=== PATIENT | male | born 1950 | race Caucasian/White ===

== ENCOUNTER 2016-09-20 00:30 | Day surgery (SDC) | payer OTHER ==
[~2016-09-20] VITALS: Ht 190.5 cm; Wt 128.0 kg
[2016-09-20] VITALS (13 sets, daily range): BP systolic 103–125; BP diastolic 67–86; PULSE 62–76; RESP 12–20; O2SAT 92–96
[~2016-09-20 00:30] MED LIST: ALBU8.5H2 INHALATION; ALLO300T2 PO; ASPI-973 PO; ATOR80TA77 PO; BUPR150T12 PO; CALC-235 PO; CALC-952 PO; CAPS42.58 TP; CITA40TA13 PO; DOCU250C2 PO; DXPN25C PO; FINA5TAB9 PO; GABA-502 PO; HYDR25CA PO; ISOS30TA4 PO; KEN25CR EXT; LEVO125T2 PO; LEVO75CA2 PO; MENT56.7 TP; METH750T3 PO; METO25TA99 PO; MORP-32 PO; MULT1CAP33 PO; MUPI22OI2 TOP; OMEP20TA86 PO; OXYC1TAB24 PO; SERT25TA6 PO; TAMS0.4C29 PO
[2016-09-20] MEDS ORDERED: Vancomycin Inj 1,000 MG in IV Premix 1 EACH IV ONE (06:00)
--- NOTE | 2016-09-20 11:00 | NUR ---
ADMISSION NOTE MALE PT ADMITTED FOR ICD PLACEMENT. DISCUSSED PLAN OF CARE WITH PT. SEE ADMIT AND FLOW SHEET
[2016-09-20 11:55] LABS: BASOPHILS % (AUTO) 0.6 % (0-3); EOSINOPHILS % (AUTO) 4.1 % (0-5); MONOCYTES % (AUTO) 10.8 % (4-12); Mean Corpuscular Hemoglobin 32.3 pg (27.0-35.0); NEUTROPHILS % (AUTO) 44.7 % (40-74); Platelet Count 157 bil/L (150-400)
[2016-09-20] MEDS ORDERED: Vancomycin 1,000mg/200 mL NS IV ONE (12:26)
[2016-09-20] MEDS ORDERED: Bupivacaine-MPF 0.5% 30 mL Inj ONE (12:38)
[2016-09-20] MEDS ORDERED: 0.9% Sodium Chloride 250 ML ONE (12:38)
[2016-09-20] MEDS ORDERED: Vancomycin 1,000 mg Inj ONE (12:38)
[2016-09-20] MEDS ORDERED: Heparin 5,000 Units/500 mL NS Premix IV ONE (12:55)
[2016-09-20] MEDS ORDERED: fentaNYL-PF 50 mCg/mL 2 mL Inj ONE (13:40)
[2016-09-20] MEDS ORDERED: Ondansetron 2 mg/mL 2 mL Inj IVPUSH PRN (15:20)
--- NOTE | 2016-09-20 16:39 | DRSVH ---
PROCEDURE: X-RAY CHEST ONE VIEW, PORTABLE ([id number]) INDICATIONS: For new leads placed TECHNIQUE: One view of the chest was acquired. COMPARISON: [facility], CR, XR CHEST 1VW (PORTABLE), 09/05/2015, 14:41. FINDINGS: Surgical changes and devices: There is a left chest wall AICD with leads projecting over the right at rium right ventricle. Postsurgical changes are redemonstrated in the mediastinum. Lungs and pleura: No pleural effusions or pneumothorax. Lungs are clear. Mediastinum: Mediastinal contours appear unchanged. Heart size is normal. Bones and chest wall: No suspicious bony lesions. Overlying soft tissues appear unremarkable. IMPRESSION: 1. Status post AICD placement with no evidence of pneumothorax. Dictated by: Gaurav Sarkar M.D. on 09/20/2016 at 16:37 Approved by: Gaurav Sarkar M.D. on 09/20/2016 at 16:38
--- NOTE | 2016-09-20 17:30 | NUR ---
Care assumed/Transfer Care assumed at 1630. Site clear. Ice pack on. VSS. States tolerable soreness at site. Taking po and voiding. Report called by Radha Erickson RN to Ambrosio Perez RN. Transported to 3028 via bed with all belongings in no distress at 1725.
--- NOTE | 2016-09-20 17:45 | NUR ---
ADMIT/Transfer from [facility] Report received from RAD Garcia in [facility]. Pt brought onto floor around 1745 via bed. Admission interventions completed. Incision site is CDI. Pt declines to wearing arm sling, but keeps arm movement restricted. Pt reports 5/10 pain in L hip and back from previous injury, and incision site pain at 3/10. Denies CP and SOB. Tele placed, belongings recorded, waiver signed and kept at bedside in duffel bag. Pt reports he was instructed to bring his medications for his stay. Pt instructed to not use home meds and to have them sent home. Plan on board and continuing with care.
[2016-09-20] MEDS: HYDROcodone-APAP 5-325 mg Tablet PO PRN ×2 (18:06→22:14)
[2016-09-20] MEDS: 0.9% Sodium Chloride 1,000 ML IV SCH (18:09)
[2016-09-20] MEDS ORDERED: Albuterol 2.5 mg/3 mL Inhalation Solution NEB PRN (20:25)
[2016-09-20] MEDS ORDERED: Mupirocin 2% 22 Gm Ointment TOPICAL PRN (20:35)
[2016-09-20] MEDS ORDERED: Menthol Gel 57 Gm Tube TOPICAL PRN (20:35)
[2016-09-20] MEDS: MeTOProlol XL 25 mg ER24 Tablet PO SCH (22:02)
[2016-09-21 01:11] VITALS: BP 115/76; PULSE 65; RESP 18; O2SAT 93
--- NOTE | 2016-09-21 02:06 | OP ---
[address] [address] OPERATIVE REPORT PATIENT: SIMRAN GLYNN : 1950 MR#: [id number] ADMIT: 09/20/2016 JOB ID: [id number] DATE OF SURGERY: 09/20/2016 PREOPERATIVE DIAGNOSIS(ES): 1. Severe ischemic cardiomyopathy with ejection fraction 30%. 2. [place] [employer] class III heart failure symptoms. 3. Sick sinus syndrome. 4. Coronary artery disease, status post bypass grafting. POSTOPERATIVE DIAGNOSIS(ES): 1. Severe ischemic cardiomyopathy with ejection fraction 30%. 2. [place] [employer] class III heart failure symptoms. 3. Sick sinus syndrome. 4. Coronary artery disease, status post bypass grafting. PROCEDURES PERFORMED: 1. Dual-chamber internal cardioverter-defibrillator implantation. 2. Left upper extremity venogram. 3. Fluoroscopy. SURGEON: Jose Martin Leiva MD, moss gatherer. VOICE NETWORK ADMINISTRATOR: Dayami Mckenzie IMPLANTED DEVICES: 1. [employer] pulse generator, model SF1486, 36, serial #[id number]. 2. RA lead [employer] 2088TC, 52 cm, serial #[id number]. 3. RV lead [employer], single coil DF4, 7122Q8, 65 cm, serial #[id number]. ANESTHESIA: Bolus dosing of Versed and fentanyl were utilized for appropriate level of sedation. INDICATION: The patient is a pleasant 66-year-old man with coronary artery disease with bypass grafting, ischemic cardiomyopathy, advanced heart failure symptomology and symptomatic sinus bradycardia. After discussion of risks and benefits of dual-chamber ICD implantation for primary prevention of sudden cardiac arrest and treatment of sick sinus syndrome, he opted to proceed PROCEDURAL DESCRIPTION: Following informed consent, the patient was taken to the EP laboratory in a fasting, nonsedated state, where he was prepped and draped in usual sterile fashion. The left infraclavicular region was infiltrated with 40 cc of a 50/50 mixture of bupivacaine and lidocaine. Once adequate anesthesia had been achieved, a 3 cm transverse incision was performed 2 cm below the left clavicle. Dissection was carried down to the pectoralis fascia. A pocket was then fashioned using combination of electrocautery and blunt dissection. Once adequate hemostasis had been achieved, attempts to access the left axillary vein with a micropuncture needle were unsuccessful. A left upper extremity venogram was performed. Under venographic guidance, the vessel was cannulated twice with a micropuncture needle to deploy two 0.035, 3 mm J guidewires. Over the first of these, a 7-English tear-away sheath was advanced. Once the guidewire was removed, an active fixation lead was advanced to the RV outflow tract and ultimately the RV apex. The lead was affixed in position using its associated fixation screw. It was connected to the external analyzer and demonstrated appropriately sensed R waves, impedance, capture threshold. Lead was checked to 10 V and there was no evidence of diaphragmatic stimulation. Of note, the patient's heart is quite rightward rotated. Attention was now paid to placement of the right atrial lead. Over the previously deployed J guidewire another 6-English tear-away sheath was advanced. Once the guidewire was removed, an active fixation lead was advanced to the right atrial appendage. It was affixed in position using its associated active fixation screw. The lead was connected to the external analyzer and demonstrated appropriately sensed P waves, impedance, capture threshold. Lead was checked to 10 V. There was no evidence of diaphragmatic stimulation. Once the position and redundancy of both leads was confirmed with multiple fluoroscopic views, the leads were anchored to the prepectoralis fascia using their associated anchoring sleeves and two Ethibond sutures. The pocket was then copiously irrigated with antibiotic solution. The leads were connected to a generator, and then the pocket was affixed to the floor of the pocket using 1-0 Ti-Cron suture. The incision was then closed with running layers of absorbable suture. The wound was dressed with skin adhesive and a small dressing. At the end of procedure, the needle, sponge and instrument counts were all correct. COMPLICATIONS: None. ESTIMATED BLOOD LOSS: Negligible. DEVICE MEASURED DATA: 1. Right atrial lead 3.5 mV, 540 ohms, 0.75 V at 0.5 msec. 2. RV lead greater than 12 mV, 580 ohms, 0.5 V at 0.5 msec. FINAL PROGRAM PARAMETERS: 1. DDD 60-130 beats per minute. 2. VT monitor zone 150 beats per minute. 3. VT zone at 171 beats per minute with ATP followed by maximum output shocks. 4. VF zone at 187 beats per minute with ATP during charge with maximum output shocks thereafter. IMPRESSION: Successful dual-chamber internal cardioverter-defibrillator implantation. PLAN: 1. Stat portable chest x-ray. 2. PA and lateral chest x-ray in the morning. 3. 4. IV vancomycin through tomorrow. 5. Doxycycline x7 days. 6. Wound check in one week. ATTENDING STATEMENT: Jose Martin Leiva MD, electrophysiology attending, was present for and supervised/performed all aspects of this procedure.
[2016-09-21] MEDS ORDERED: Vancomycin Inj 1,000 MG in IV Premix 1 EACH IV ONE (03:20)
[2016-09-21] MEDS: 0.9% Sodium Chloride 1,000 ML IV SCH ×2 (03:30→11:16)
[2016-09-21 03:44] VITALS: PULSE 65
[2016-09-21 05:38] VITALS: BP 115/75; PULSE 65; RESP 18; O2SAT 93
[2016-09-21] MEDS ORDERED: Pantoprazole 20 mg ER24 Tablet PO SCH (06:30)
[2016-09-21] MEDS ORDERED: Isosorbide Mononitrate 30 mg ER24 Tablet PO SCH (07:30)
[2016-09-21] MEDS: MeTOProlol XL 25 mg ER24 Tablet PO SCH (07:45)
[2016-09-21] MEDS: HYDROcodone-APAP 5-325 mg Tablet PO PRN (07:49)
[2016-09-21 08:00] VITALS: PULSE 66
[2016-09-21] MEDS ORDERED: buPROPion SR 150 mg ER12 Tablet PO SCH (08:00)
[2016-09-21] MEDS ORDERED: Calcium Carbonate (Oyster Shell) 500 mg Tablet PO SCH (08:00)
--- NOTE | 2016-09-21 08:15 | NUR ---
Respiratory Pt assessed found sitting up in bed breathing RA. Sat 94% HR 64, RR 16. Pt states no SOB, cough or sputum, no need for Tx at this time, aware Tx is available.
--- NOTE | 2016-09-21 09:23 | DRSVH ---
PROCEDURE: X-RAY CHEST, TWO VIEWS ([id number]) INDICATIONS: For new lead placement TECHNIQUE: 2 views of the chest were acquired. COMPARISON: [facility], CR, XR CHEST 1VW (PORTABLE), 09/20/2016, 15:45. FINDINGS: Surgical changes and devices: Stable position left chest AICD. Median sternotomy wires. Lungs and pleura: No pleural effusions or pneumothorax. Lungs are clear. Mediastinum: Mediastinal contours are normal. Heart size is normal. Bones and chest wall: No suspicious bony abnormalities. Soft tissues appear unremarkable. IMPRESSION: Stable exam post pacer placement. Dictated by: Mario OROZCO Interpreted: Eleanor Brewster MD on 09/21/2016 at 9:21 Transcribed by: STACY on 09/21/2016 at 9:22 Approved by: Eleanor Brewster M.D. on 09/21/2016 at 15:48
--- NOTE | 2016-09-21 10:09 | PCM.DIMED ---
Discharge Instructions Date of Service Sep 21, 2016 Dates of Hospitalization Discharge Diagnosis Discharge Diagnosis Ischemic Cardiomyopathy Sick Sinus Syndrome with symptomatic bradycardia Obstructive Sleep Apnea Hypertension Diet Heart Healthy Activity Other (Keep incision dry one day. Do not extend left elbow high above left shoulder for one month. Do not lift, push or pull more than 10 lbs with the left arm for one month.) Call your provider Fever or Chills, Bleeding, Excessive diarrhea Patient Instructions Follow-up in: 1 week Mid-level Provider (F9): Jian Cohn PA-C Follow-up with Mid-level in: 6 weeks Jian Cohn PA-C Sep 21, 2016 10:09
[2016-09-21] MEDS ORDERED: CEPH500C PO (10:26)
[2016-09-21] MEDS ORDERED: OXYC-407 PO (10:35)
[2016-09-21 11:53] VITALS: BP 96/50; PULSE 65; RESP 22; O2SAT 92
[2016-09-21 12:05] VITALS: BP 98/64
--- NOTE | 2016-09-21 13:15 | NUR ---
Discharge Reviewed discharge paperwork, care notes, and prescriptions with pt - disclaimer signed. IV's DCd intact, Tele removed, all belongings with pt. Pt denies pain, SOB with no observable symptoms. Pt taken curbside in WC, friend driving pt home in truck.
--- NOTE | 2016-09-21 20:09 | DIS ---
[address] [address] DISCHARGE SUMMARY PATIENT: SIMRAN GLYNN : 1950 MR#: [id number] ADMIT: 09/20/2016 JOB ID: [id number] DIS: 09/21/2016 REASON FOR ADMISSION: Defibrillator implant. CHIEF COMPLAINT: Fatigue and exertional dyspnea. BRIEF HISTORY: This patient is a pleasant, 66-year-old man known to have ischemic heart disease and prior bypass grafting. He has severe ischemic cardiomyopathy and an LV ejection fraction of 30%. The patient also has symptomatic bradycardia which led to discontinuation of necessary beta blockers. He has been symptomatic with severe fatigue and dyspnea with minimal exertion and gets lightheaded but not near syncopal. He was advised of his increased risk for cardiac arrest and a defibrillator was recommended. Also in his history about one year ago was a syncopal episode. COURSE IN HOSPITAL: The patient was admitted to the [facility] and taken to the phlebotomist medical lab assistant, where he received the dual-chamber cardiac defibrillator system without incident. He was taken back to the [facility] for recovery from sedation and then transferred up to the third floor, [facility] [place], for overnight telemetry monitoring and observation. He did well overnight. In the morning he was ambulatory without difficulty, having not much pain and was not dyspneic at rest. The pacemaker site was closed and dry and there was no hematoma. Chest x-ray shows good lead positions and no pneumothorax. Device evaluation shows excellent capture and sensing thresholds for both leads. He felt well for discharge home. He denied any dyspnea, dizziness, chest pain, or near syncope. DISPOSITION: The patient was discharged home in good condition with a followup appointment at the [facility] Cardiology office in one week. He was asked not to extend his left elbow high above his shoulder for one month nor to lift, push, or pull more than 10 pounds with the left arm for one month. He will follow his cardiac/heart healthy diet and take medications as prescribed. DISCHARGE MEDICATIONS: 1. Cephalexin 500 mg b.i.d. for one week. 2. Albuterol 2 puffs p.r.n. shortness of breath. 3. Allopurinol 300 mg daily. 4. Aspirin 81 mg daily. 5. Atorvastatin 80 mg daily. 6. Bupropion ER 150 mg t.i.d. 7. Calcium 1 daily. 8. Capsaicin applied topically t.i.d. 9. Citalopram 40 mg daily. 10. Docusate sodium 250 mg q.h.s. 11. Doxepin 25 mg q.h.s. 12. Finasteride 5 mg daily. 13. Gabapentin 600 mg t.i.d. 14. Isosorbide mononitrate ER 30 mg daily. 15. Levothyroxine 75 mcg daily. 16. Menthol applied topically daily for hip pain. 17. Metoprolol succinate 25 mg b.i.d. 18. Multivitamin daily. 19. Mupirocin ointment applied topically b.i.d. 20. Omeprazole 20 mg daily. 21. Sertraline 25 mg daily. 22. Tamsulosin 0.8 mg daily. 23. Triamcinolone acetonide cream applied b.i.d. 24. Oxycodone/acetaminophen 5/325 mg tablets one q.4 h. p.r.n. pain, quantity of 14 with no refills. FINAL DIAGNOSES: 1. Ischemic cardiomyopathy. 2. Sick sinus syndrome with symptomatic bradycardia. 3. Obstructive sleep apnea. 4. Hypertension. cc: Primary Care Physician
== END 2016-09-21 13:11 | disposition home or self-care (01) ==
LOC: SOUO 00:30 → MPC 17:25 → SOUO 09-21 13:11
PROVIDERS: ATTEND Internal Medicine Cardiovascular Disease
DX: I25.5 Ischemic cardiomyopathy (principal); Z00.6 Encounter for examination for normal comparison and control in clinical research program; I49.5 Sick sinus syndrome; I50.9 Heart failure, unspecified; I25.10 Atherosclerotic heart disease of native coronary artery without angina pectoris; Z95.1 Presence of aortocoronary bypass graft; G47.33 Obstructive sleep apnea (adult) (pediatric); I10 Essential (primary) hypertension; Z79.82 Long term (current) use of aspirin
CPT/HCPCS: 33249; 36415; 71010; 71020; 80048; 85025; 85610; 93005; 94799; 99152; 99153; C1721; C1769; C1777; C1892; C1898; J1644; J2250; J3010; J3370; J7030; J7050; Q9967